=== PATIENT | female | born 1940 | race Caucasian/White ===

== ENCOUNTER 2017-04-17 14:03 | Inpatient (IN) | payer MEDICARE ==
[~2017-04-17] VITALS: Ht 152.4 cm; Wt 155.0 kg
[~2017-04-17 14:03] MED LIST: ACETAMINOPHEN500 M1 PO; ASPIRIN81 MG PO; BACLOFEN10 MG PO; CLARITIN 10 MG10 MG PO; COZAAR50 MG PO; CYCLOBENZAPRINE10 MG PO; DEPAKENE 2250 MG/5 M PO; GLUCOPHAGE500 MG PO; HALDOL DECAN50 MG/ML IM; HALDOL ORA30 MG/15 M PO; HUMALOG 30100 UNITS/ SC; HYZAAR 100-25 T1 TAB PO; IMODIUM2 MG PO; LITHIUM CARBON150 MG PO; LITHIUM CI8 MEQ/5 ML PO; NATURAL SENNA8.6 MG PO; OS-CAL500 MG PO; OXYBUTYNIN CHLOR5 MG PO; PLETAL100 MG PO; SEROQUEL25 MG PO; SEROQUEL50 MG PO; ULTRAM50 MG PO; VESICARE5 MG PO; VITAMIN D31000 UNI2 PO; ZYPREXA10 MG PO
[2017-04-17 15:02] LABS: BASOPHILS 0.2 % (0-2); EOSINOPHILS 3.8 % (0-7); HEMATOCRIT 37.8 % (36.0-48.0); HEMOGLOBIN 11.8 g/dL (12-16); IMMATURE GRANULOCYTES 0.1 % (0-5); LYMPHOCYTES 35.6 % (15-50); MCH 28.6 pg (26.0-34.0); MCHC 31.2 g/dL (31.0-37.0); MCV 91.5 fL (80.0-100.0); MEAN PLATELET VOLUME 10.7 fL (7.4-10.4); MONOCYTES 5.6 % (2-11); NEUTROPHILS 54.7 % (40-80); PLATELET COUNT 182 10x3/uL (130-400); RBC 4.13 10x6/uL (4.00-5.40); RDW 16.5 % (11.5-14.5); WBC 9.4 10x3/uL (4.8-10.8)
[2017-04-17 15:57] LABS: ALBUMIN 3.4 g/dL (3.4-5.0); ANION GAP 18.1 mmol/L (8-16); BILIRUBIN - TOTAL 0.39 mg/dL (0.2-1.3); CALCIUM 9.3 mg/dL (8.5-10.1); CARBON DIOXIDE 23.3 mmol/L (21.0-32.0); CREATININE - SERUM 0.9 mg/dL (0.6-1.3); POTASSIUM - SERUM 4.4 mmol/L (3.5-5.1); PROTEIN - SERUM 7.4 g/dL (6.4-8.2)
[2017-04-17 16:45] LABS: APPEARANCE CLEAR (CLEAR); BILIRUBIN NEGATIVE (NEGATIVE); COLOR YELLOW (YELLOW); EPITHELIAL CELLS 0-5 /hpf (0-5); GLUCOSE NEGATIVE (NEGATIVE); KETONE NEGATIVE (NEGATIVE); NITRITE NEGATIVE (NEGATIVE); PROTEIN TRACE mg/dL (NEGATIVE); RED CELLS - URINE 0-5 /hpf (0-5); UROBILINOGEN NORMAL (NORMAL); WHITE CELLS - URINE 0-5 /hpf (0-5)
[2017-04-17 16:46] LABS: BACTERIA MODERATE /hpf (NONE SEEN)
[2017-04-17 17:02] LABS: UDS - AMPHET NEGATIVE QUAL (NEGATIVE); UDS - BARB NEGATIVE QUAL (NEGATIVE); UDS - BENZO NEGATIVE QUAL (NEGATIVE); UDS - COCAINE NEGATIVE QUAL (NEGATIVE); UDS - OPIATE NEGATIVE QUAL (NEGATIVE); UDS - PCP NEGATIVE QUAL (NEGATIVE); UDS - THC NEGATIVE QUAL (NEGATIVE)
--- NOTE | 2017-04-17 18:45 | NUR ---
RECEIVED FROM EMERGENCY DEPARTMENT MARGARET RODRIGUEZ WITH HOSPITAL STAFF. PATIENT WAS SEDATED AND HAD TO BE MANUALLY TRANSFER WITH 3 STAFF MEMBERS TO HER BED. SHE DID AWAKEN AND HAD GARBLED SPEECH AND WASS RESISTANT TO BEING MOVED. SHE STARTED YELLING AT STAFF, BUT BRIEFLY LATER SHE CALMED DOWN. O2 AT 2L/NC WAS APPLIED FOR RESPIRATIONS DUE TO PRN INJECTION GIVEN IN ER DEPT. MONITOR FOR SAFETY AND CHANGES. WILL CONTINUE WITH PLAN OF CARE.
[2017-04-17] MEDS ORDERED: ACETAMINOPHEN325 MG PO (19:50)
[2017-04-17] MEDS ORDERED: ACIDOPHILUS LAC1 CAP PO (19:52)
[2017-04-17] MEDS ORDERED: ARTIFICIAL TEAR15 ML EACH EYE (19:53)
[2017-04-17] MEDS ORDERED: ASPIRIN325 MG PO (19:54)
[2017-04-17] MEDS ORDERED: BAYER CHEWABLE81 MG PO (19:55)
[2017-04-17] MEDS ORDERED: AUGMENTIN 875-11 TAB PO (19:56)
[2017-04-17] MEDS ORDERED: DULCOLAX STOOL100 MG PO (19:58)
[2017-04-17] MEDS ORDERED: FIBER POWDER (20:00)
[2017-04-17] MEDS ORDERED: FISH OIL 1,0001 CA1 PO (20:00)
[2017-04-17] MEDS ORDERED: PROZAC10 MG PO (20:01)
[2017-04-17] MEDS ORDERED: NEURONTIN 300300 MG PO (20:01)
[2017-04-17] MEDS ORDERED: HYDRALAZINE HCL10 MG PO (20:03)
[2017-04-17] MEDS ORDERED: MELATONIN 3 MG1 TAB PO (20:08)
[2017-04-17] MEDS ORDERED: MIRALAX17 GM PO (20:09)
[2017-04-17] MEDS ORDERED: METOPROLOL TART50 MG PO (20:09)
[2017-04-17] MEDS ORDERED: NYAMYC60 GM TP (20:11)
[2017-04-17] MEDS ORDERED: OMEPRAZOLE20 M1 PO (20:12)
[2017-04-17] MEDS ORDERED: DITROPAN X10 MG/BOTT PO (20:13)
[2017-04-17 20:14] VITALS: BP 125/85
[2017-04-17] MEDS ORDERED: GAS-X80 MG PO ×2 (20:19)
[2017-04-17] MEDS ORDERED: ULTRAM50 MG PO (20:21)
[2017-04-17] MEDS ORDERED: ASCORBIC ACID500 MG PO (20:21)
[2017-04-17] MEDS ORDERED: VITAMIN D31000 UNIT PO (20:22)
[2017-04-17] MEDS ORDERED: ZYPREXA10 MG PO (20:23)
[2017-04-17 21:40] LABS: HEMOGLOBIN A1C 6.9 % (4.8-6.0)
[2017-04-17 21:54] LABS: CHOL - HDL RATIO 3.9 ratio (2.3-4.1); LDL-HDL RATIO 2.4 ratio (1.5-3.5); THYROID STIMULATING HORMONE 1.3 uIU/mL (0.36-3.74)
--- NOTE | 2017-04-17 23:33 | NUR ---
RECEIVED IN BEDROOM. LAYING IN BED WITH EYES CLOSED. VERY LETHARGIC. HEAD OF BED 30 DEGREES. ADMIT CONSENT RECIEVED VIA TELEPHONE FROM HER SISTER RANJEET. DNR CODE STATUS RECEIVED FROM SISTER. RESTING IN BED EYES CLOSED AT THIS TIME.
--- NOTE | 2017-04-18 07:47 | NUR ---
SCREAMING AND YELLING OUT LOUDLY WHEN GETTING PATIENT OUT OF BED. ATIVAN 0.5MG AND HALDOL 2 MG IM GIVEN IN RIGHT GLUTEAL GIUSEPPE.
[2017-04-18 09:38] VITALS: BP 111/59
[2017-04-18 13:35] VITALS: BMI 40.7
[2017-04-18 16:42] VITALS: BP 160/78; Ht 152.4 cm; Wt 155.0 kg
--- NOTE | 2017-04-18 19:32 | NUR ---
RECEIVED IN HALLWAY. RESTING IN RECLINER WITH EYES CLOSED. ASSIST TO TRANSFERE TO BED. CLEANED PATIENTS FACE AND EYES PER ORDER TO PREVENT EYE INFECTION. YELLS OUT DURING CARE. RESIST CARE. RESTING IN BED EYES CLOSED AT THIS TIME. CONTINUE PLAN OF CARE
[2017-04-18 20:17] VITALS: BP 115/78
--- NOTE | 2017-04-19 03:28 | NUR ---
PROVIDING CARE. PATIENT COMBATIVE. CURSING. THREATING. ATTEMPT TO ROLL OUT OF BED. PRN ATIVAN 0.5 MG IM GIVEN FOR ANXIETY AND PRN HALDOL 2 MG IM GIVEN FOR PSYCHOTIC UNSAFE BEHAVIORS.
--- NOTE | 2017-04-19 09:00 | NUR ---
Resting quietly in bed, resp even and unlabored, arouses to verbal/tactile stimuli but quite drowsy, unable to takes meds at this time. Cont POC including meds and group therapy at directed. No aggression noted at this time.
[2017-04-19 09:05] VITALS: BP 140/67
--- NOTE | 2017-04-19 12:52 | PSY ---
PATIENT NAME:TERRENCE MESA MEDICAL RECORD: [id number] : 40 LOCATION:[facility]NE[facility]sie[facility] ADMISSION DATE: 04/17/17 ACCOUNT: [id number] PSYCHIATRIC EVALUATION DATE OF EVALUATION: 04/18/17 IDENTIFYING DATA: The patient is 76 years old and she is admitted to the hospital on a voluntary basis. CHIEF COMPLAINT: Melvi. HISTORY OF PRESENT ILLNESS: The patient is a known chronically mentally ill person with a longstanding diagnosis of mental illness. She lives in a local usp. Apparently if I have the information correct, she became lithium toxic and was taken off lithium by someone at the Emergency Room at [facility]. Since then, she has become manic, screaming, yelling, threatening, and agitated. She is not cooperative with me at all. I was able to get her to answer a few questions and then almost without any warning at all she threw a cup of apple juice on me. That ended the interview. PAST MEDICAL HISTORY: Significant for diabetes. PAST PSYCHIATRIC HISTORY: Significant for chronic mental illness with many hospitalizations throughout her life including several here, but none for almost 2 years. Again taking her off lithium is a mistake. FAMILY HISTORY: Unknown. ALLERGIES: No known drug allergies. CURRENT MEDICATIONS: Include Cozaar, Flexeril, Haldol, Zyprexa, insulin, Glucophage, aspirin, Prozac, melatonin, MiraLax. SOCIAL HISTORY: The patient is living in a usp. She has been chronically mentally ill all much of her adult life. MENTAL STATUS EXAMINATION: The patient is awake, alert and oriented to person and place. She is manic, hyperverbal and formal mental status testing was not completed before she threw apple juice on me. ASSETS: Stable living environment. LIABILITIES: Limited insight. DIAGNOSTIC IMPRESSION: AXIS I: Schizoaffective disorder, bipolar type. AXIS II: None. AXIS III: Hypertension and diabetes. AXIS IV: Moderate stressors. AXIS V: Global assessment of functioning is 25. PLAN: At this time, the patient is manic and in need of a mood stabilizer. When she was here before she did not want to take lithium and was tried on both Tegretol and Depakote and they failed. This patient may well have gotten lithium toxic. She just needs to be watched closely. She has a BUN of 18 and a creatinine of 0.9 right now. There is no renal reason at this point why she cannot take lithium and there is absolutely no reason why she cannot or should not be monitored closely for lithium toxicity and the appropriate thing to do is to monitor her and not just discontinue a medication that is going to make her become ill. I am going to restart her on lithium. TRANSINT:[id number] Voice Confirmation ID: [id number] DOCUMENT ID: [id number] FREDERICK OWEN MD at 1252 CC: [id number] DICTATION DATE: 04/18/17 1324 CARE SPECIALIST: 04/18/17 1341 ADM IN [place] [id number] [place] [id number]
[2017-04-19 19:36] VITALS: BP 130/70
--- NOTE | 2017-04-19 22:51 | NUR ---
RECEIVED IN PATIENT ROOM. RESTING QUIETYLY IN BED WITH EYES OPEN. ASKED FOR HER GREEN BLANKET. STATED "I WANT THIS BLANKET BECAUSE IT IS MY LOVERS BLANKET. IT STILL HAS HIS BLOOD STAINS ON IT." NO SIGNS OF AGGRESSION. REDIRECT AND REORIENT NEEDED. RESTING IN BED WITH EYES CLOSED AT THIS TIME. CONTINUE PLAN OF CARE.
--- NOTE | 2017-04-20 09:56 | PN ---
PATIENT:ETRRENCE MESA MEDICAL RECORD: [id number] LOCATION:DARNELL Naqvi ADMISSION DATE: 04/17/17 PROGRESS NOTE DATE OF SERVICE: 04/19/2017 SUBJECTIVE: The patient's case was discussed with staff. She has no new complaint. OBJECTIVE: The patient is manic, labile and delusional, yelling, cursing, and threatening in a way that it is clearly delusional and not in touch with reality. ASSESSMENT: No change in diagnoses. PLAN: Brief supportive and educational interventions were made. I have encouraged the patient to take her medications, which will help her. She does not accept this conclusion. TRANSINT:[id number] Voice Confirmation ID: [id number] DOCUMENT ID: [id number] FREDERICK OWEN MD at 0956 CC: [id number] DICTATION DATE: 04/19/17 1302 MANGLE OPERATOR GARMENTS: 04/19/17 1310 ADM IN [place] [id number] [place] [id number]
--- NOTE | 2017-04-20 12:24 | NUR ---
B) PATIENT IS AWAKE AND SHE IS EATING LUNCH, SHE WANTS TO LIE DOWN TO EAT. SHE DID TAKE HER AM MEDS EXCEPT MIRALAX AND ASA. SHE IS QUESTIONING EVERY MEDS AND SHE IS SINGING ALOUD. SHE WET HER BED ON THE PINK PAD ONLY AND THIS NURSE ASKED HER IF SHE WET, SHE SAID "NO, THE CAT CAME IN HERE AND WET ON THE PAD" PATIENT IS DELUSIONAL, GRANDIOSE, AND TALKS AND SINGS TO HERSELF. I) PROVIDE PRESCRIBED MEDS AND REDIRECT NEEDED. R) PATIENT NEEDS MUCH REDIRECTION TO REALITY AND SHE HAS TO BE GIVEN DIRECTION MATTER OF FACT, SHE TRIES TO MANIPULATE AND CHANGE THE SUBJECT AND GET OFF TRACK. P) CONTINUE POC.
--- NOTE | 2017-04-20 13:35 | NUR ---
PATIENT CONTINUES TO RING HER SABA MULTIPLE TIMES, FIRST ASKS TO MAKE A PHONE CALL, THEN ASKS TO PUT PANTS ON, ASKS FOR WATER, THEN ASKS FOR THE LIGHTS TO BE LOWERED, THEN ASKS FOR THE DOOR TO BE SHUT, THEN ASKS FOR A W/C TO GET TO THE PHONE. PATIENT CONTINUES TO TRY TO MANIPULATE. STAFF EXPLAIN THAT SHE CAN MAKE A PHONE CALL AT 5:30 THIS PM. HER CLOCK IN HER ROOM IS NOT WORKING, BUT DID EXPLAIN THAT WE WILL LET HER KNOW WHEN PHONE CALL TIMES ARE.
--- NOTE | 2017-04-20 15:15 | NUR ---
PATIENT WET HER BED AND THREW THE PINK PAD ON THE FLOOR, SHE WET THE ENTIRE BED AND NEEDED AND RECEIVED A FULL BED CHANGE.
--- NOTE | 2017-04-20 16:19 | NUR ---
PATIENT CONTINUES TO USE HER CALL SABA AND MAKE MULTIPLE REQUESTS. PATIENT IS NOW SCREAMING FOR STAFF TO PUT UP ALL FOUR SIDE RAILS, SAYING "I'M GOING TO FALL OUT" TRIED TO EXPLAIN TO HER THAT WE ARE NOT ALLOWED TO PUT UP ALL FOUR SIDE RAILS. PATIENT HAS MANEUVERED HER BED WHERE THE FEET ARE ELEVATED HIGH. DOES NOT LOOK COMFORTABLE, BUT SHE DOES NOT WANT IT MOVED TO A DIFFERENT ANGLE. PATIENT YELLING OUT AND NONCOOPERATIVE, STAFF FROM OTHER UNIT CAME OVER TO SEE WHAT IS GOING ON. PATIENT DID RECEIVE HALDOL 2 MG IM IN LEFT HIP. WILL MONITOR.
[2017-04-20 19:22] VITALS: BP 132/84
--- NOTE | 2017-04-21 01:56 | NUR ---
B) Patrient is alert and oriented to person and place, defiant , needy, and demanding, attention seeking, Restless and agitated. I) Administered scheduled medications, PRN Ativan 0.5 mg IM and Haldol 2 mg IM given at 20:29 adn again at 23:30 for agitation R) Medication compliant this shift, loud and disruptive, P) Continue plan of care.
--- NOTE | 2017-04-21 07:27 | NUR ---
B) PATIENT AWAKENED AND STAFF DID GET HER UP OUT OF BED AND SHE IS YELLING AND CURSING, SAYING "I CAN NOT GET UP OUT OF BED, I CAN NOT BE SEEN LIKE THIS, I AM NOT READY TO SEE THE PUBLIC" PATIENT BEGINS TO SCREAM, OTHER PATIENTS HAVE ALREADY TOLD HER TO "SHUT UP" AND SHE BEGAN POITING HER BRUSH AT THEM AND RANTING AND RAVING "I NEED TO GO BACK TO MY ROOM" I) PROVIDE PRESCRIBED MEDS. R) PATIENT IS YELLING AND ACTING OUT. P) CONTINUE POC.
--- NOTE | 2017-04-21 07:36 | NUR ---
PATIENT YELLING AND SHE RECIEVED ATIVAN 0.5 MG WITH HALDOL 2 MG IM IN HER LEFT ARM. PATIENT CONTINUES TO YELL AND SCREAM. WILL MONITOR.
--- NOTE | 2017-04-21 08:10 | NUR ---
PATIENT IS NOT YELLING MUCH AND HER VOICE IS GETTING SOFTER AND WORDS ARE SLURRING.
[2017-04-21 09:06] VITALS: BP 125/50
--- NOTE | 2017-04-21 09:17 | PN ---
PATIENT:TERRENCE MESA MEDICAL RECORD: [id number] LOCATION:DARNELL Naqvi ADMISSION DATE: 04/17/17 PROGRESS NOTE DATE OF SERVICE: 04/20/2017 SUBJECTIVE: The patient's case was discussed with staff. She has no new complaint. OBJECTIVE: The patient is delusional with significant mood lability and agitation. She denies that she would seek to harm herself. She is angry with me about my recommendation that she take medication. She says she is not going to take medicine, although I have learned later that she actually took the medicine this morning from the nurse. At this point, she is still profoundly sick and is in need of significant pharmacologic intervention. TRANSINT:[id number] Voice Confirmation ID: [id number] DOCUMENT ID: [id number] FREDERICK OWEN MD at 0917 CC: [id number] DICTATION DATE: 04/20/17 1002 INFORMATION SUPPORT PROJECT MANAGER: 04/20/17 1050 ADM IN [facility] [address] [place] [address]
--- NOTE | 2017-04-21 17:41 | NUR ---
PATIENT IS RANTING AND RAVING ABOUT MAKING PHONE CALLS SHE IS TALKING NONSTOP AND SINGING THE OTHER PATIENT'S ARE GETTING UPSET WITH HER AND AND THEY HAVE ASKED "CAN'T YOU DO SOMETHING WITH HER, SHE NEVER SHUTS UP" PATIENT BECAME LOUDER AND LOUDER AND MAKING A SCENE. PATIENT GIVEN ATIVAN 0.5 MG IM AND HALDOL 2 MG IM IN RIGHT DELTOID. PATIENT SCREAMED ABOUT THAT, MAKING REQUESTS TO "GIVE MY MEDICINE, I NEED MY MEDICINE".
[2017-04-21 19:57] VITALS: BP 101/48
--- NOTE | 2017-04-21 23:27 | NUR ---
B) Patient is alert and restless, disruptive of other patients by yelling and singing loudly, patient does not redirect or even stop talking to hear instructions, very needy and tries to manipulate staff, I) Administered scheduled medications, PRN Ativan 0.5 mg IM and Haldol 2 mg IM given at 23:20 for anxiety, R) Medication compliant, constant badgering the staff with requests, P) Continue plan of care.
[2017-04-22 08:00] VITALS: BP 144/52
--- NOTE | 2017-04-22 08:46 | NUR ---
B) PATIENT DID NOT WANT TO GET UP AND SHE BEGAN TO PUNCH AT STAFF THEY WERE ASSISTING HER TO GET UP. PATIENT YELLING AND CALLING STAFF "IDIOTS" PATIENT NOT COOPERATIVE, SHE IS ABLE TO SIT UP AND STAND, BUT SHE IS REFUSING. PATIENT IS SAYING "I NEED TO STAY IN BED" I) PROVIDE PRESCRIBED MEDS, PATIENT DID RECIEVE ATIVAN 0.5 MG IM WITH HALDOL 2 MG IM IN LEFT DELTOID. R) PATIENT IS TAKING MEDS CRUSHED IN HER ORANGE JUICE. P) CONTINUE POC.
--- NOTE | 2017-04-22 10:46 | NUR ---
PATIENT'S SISTER DID CALL TO CHECK ON HER AND LET STAFF KNOW THAT SHE NEEDS HER GLASSES AND [facility]. SHE DID ASK HOW SHE IS DOING. DID LET HER KNOW SHE IS STILL SICK, BUT THAT WE ARE TRYING TO GET HER MEDS IN HER TO GET HER MORE STABLE, SISTER DID SAY SHE KNEW TERRENCE IS BETTER ON LITHIUM.
--- NOTE | 2017-04-22 11:29 | PN ---
PATIENT:TERRENCE MESA MEDICAL RECORD: [id number] LOCATION:DARNELL Naqvi ADMISSION DATE: 04/17/17 PROGRESS NOTE DATE OF SERVICE: 04/21/2017 SUBJECTIVE: The patient's case was discussed with staff. She has no new complaint. OBJECTIVE: The patient is delusional and hyperverbal. She has been agitated, throwing things at the staff, cursing, and yelling. She has been compliant with some of her medicines and not others. The pattern seems to make no rational sense. Some of the pills she said she would never take she has and others that she has never said anything about having a problem taking she will not take. Obviously, this is illogical and consistent with her mental illness. At this point, I am wanting to get enough antipsychotic and mood stabilizing medicines into her to bring her down to a point where she can interact with me in a rational manner. [place], I think, is the roldan medication that will accomplish this; and in my previous dealings with her, other mood stabilizers simply have not had the same beneficial effect. She has a normal renal function, but if lithium is mentioned to her, she often will become angry and says she cannot take it because her kidneys are failing. Telling her that is not the case only makes her angry. TRANSINT:[id number] Voice Confirmation ID: [id number] DOCUMENT ID: [id number] FREDERICK OWEN MD at 1129 CC: [id number] DICTATION DATE: 04/21/17 0935 PRESS SET UP PERSON: 04/21/17 1138 ADM IN [place] [address] [place] [address]
[2017-04-22 21:13] VITALS: BP 110/54
--- NOTE | 2017-04-23 04:51 | NUR ---
B) patient is alert and oriented to self and being in a hospital, difficult to redirect, defiant, needy and attention seeking, I) Administered scheduled medications, PRN Ativan 0.5 mg IM and Haldol 2 mg IM given at 2100 for anxiety, redirected as needed, R) Medication compliant, demanding and badgering staff P) Continue plan of care.
[2017-04-23 07:00] VITALS: BP 158/44
--- NOTE | 2017-04-23 12:00 | NUR ---
ORIENTED BUT NONCOMPLIANT WITH STAFF AND MEDS.REFUSED LITHIUM THIS AM.YELLS OUT AT TIMES.WILL CONTINUE WITH PLAN OF CARE,MONITOR FOR CHANGES AND SAFETY.
--- NOTE | 2017-04-23 12:01 | PN ---
PATIENT:TERRENCE MESA MEDICAL RECORD: [id number] LOCATION:DARNELL Naqvi ADMISSION DATE: 04/17/17 PROGRESS NOTE DATE OF SERVICE: 04/22/2017 SUBJECTIVE: The patient's case was discussed with staff. She has no new complaint. OBJECTIVE: The patient is in good behavioral control with poor insight about her condition. She tolerates her medicines well. ASSESSMENT: No change in diagnoses. PLAN: Brief supportive and educational interventions were made. Long-term prognosis is guarded. The patient will have a lithium level checked in a day or two. She clearly is still delusional, but showing some improvement. TRANSINT:[id number] Voice Confirmation ID: [id number] DOCUMENT ID: [id number] FREDERICK OWEN MD at 1201 CC: [id number] DICTATION DATE: 04/22/17 1138 SAW HANDLE ASSEMBLER: 04/22/17 1254 ADM IN [place] [id number] [place] [address]
--- NOTE | 2017-04-23 20:16 | NUR ---
RECEIVED IN HALLWAY. SITTING IN A RECLINING CHAIR. YELLING OUT AT TIMES. VERBALLY ABUSIVE. RESISTANT TO CARE BY THIS NURSES STATING SHE WANTS A WOMAN TO HELP HER TO BED. REDIRECT AND REORIENT NEEDED. IN BED WITH EYES OPEN. MED NURSE IN HER ROOM. CONTINUE PLAN OF CARE
[2017-04-23 20:29] VITALS: BP 138/48
--- NOTE | 2017-04-23 22:00 | NUR ---
PATIENT YELLING OUT. VERBALLY ABUSIVE TO STAFF. CURSING. THROWING THINGS IN HER ROOM. PRN ATIVAN 0.5 MG IM GIVEN FOR ANXIETY AND PRN HALDOL 2 MG GIVEN FOR PSYCHOTIC BEHAVIORS.
[2017-04-24 07:00] VITALS: BP 154/59
--- NOTE | 2017-04-24 09:57 | NUR ---
PT REFUSED MOST MEDICATIONS THIS AM. PT INSISTED ON ARGUING THAT SHE IS NOT DIABETIC AND DOES NOT NEED ANY OF THESE MEDICATIONS. PT TOOK LACTINEX, LOPRESSOR, AND ASPIRIN. WCAC.
--- NOTE | 2017-04-24 13:51 | PN ---
PATIENT:TERRENCE MESA MEDICAL RECORD: [id number] LOCATION:DARNELL Naqvi ADMISSION DATE: 04/17/17 PROGRESS NOTE DATE OF SERVICE: 04/23/2017 SUBJECTIVE: The patient's case was discussed with staff. She has no new complaint. OBJECTIVE: The patient denies intent to harm herself or others. She tolerates her medications well. Eye contact is poor. ASSESSMENT: No change in diagnoses. PLAN: Current medicines have been reviewed. Long-term prognosis is guarded. TRANSINT:[id number] Voice Confirmation ID: [id number] DOCUMENT ID: [id number] FREDERICK OWEN MD at 1351 CC: [id number] DICTATION DATE: 04/23/17 1208 GENERAL EDUCATION PROFESSOR: 04/23/17 1228 ADM IN [place] [id number] [place] [address]
--- NOTE | 2017-04-24 19:44 | NUR ---
RECEIVED IN HALLWAY. MOVING ABOUT IN WHEELCHAIR. COOPERATIVE WITH CARE AND ASSESSMENT. NOT YELLING OUT. TALKING WITH PEERS. REDIRECT AND REORIENT NEEDED. IN HALLWAY WITH MED NURSE AT THIS TIME. CONTINUE PLAN OF CARE
[2017-04-24 20:00] VITALS: BP 176/69
--- NOTE | 2017-04-25 02:45 | NUR ---
PATIENT OUT IN HALLWAY. YELLING OUT. VERBALLY ABUSIVE WITH STAFF. INCREASING ANXIETY. PRN AVTIVAN 0.5 MG IM GIVEN FOR ANXIETY AND PRN HALDOL 2 MG IM GIVEN FOR PSYCHOTIC BEHAVIORS.
[2017-04-25 08:58] VITALS: BP 137/53
--- NOTE | 2017-04-25 11:52 | PN ---
PATIENT:TERRENCE MESA MEDICAL RECORD: [id number] LOCATION:DARNELL Naqvi ADMISSION DATE: 04/17/17 PROGRESS NOTE DATE OF SERVICE: 04/24/2017 SUBJECTIVE: The patient's case was discussed with staff. She has no new complaint. OBJECTIVE: The patient denies intent to harm herself or others. She is very disorganized and delusional. She makes a number of bizarre statements. ASSESSMENT: No change in diagnoses. PLAN: The patient is still not compliant with medications and the compliance is intermittent and has no real consistency to it. At sometime she will say, she is allergic to a certain medicines, other times she will take it. Most of the time, she is not taking and especially if it is lithium. She has had a long-acting Haldol Decanoate injection. I think her prognosis is guarded. Supportive and educational interventions were made. TRANSINT:[id number] Voice Confirmation ID: [id number] DOCUMENT ID: [id number] FREDERICK OWEN MD at 1152 CC: [id number] DICTATION DATE: 04/24/17 1412 LIGHTING ENGINEER: 04/24/17 1451 ADM IN [facility] [address] [place] [id number]
--- NOTE | 2017-04-25 12:15 | NUR ---
TYLENOL GIVEN TO PT PER DR ORDER FOR 10/10 PAIN TO BACK WILL REACESS
--- NOTE | 2017-04-25 14:29 | NUR ---
Nutrition Follow Up: Pt is eating 27% meal avg on a diabetic diet. Noted she is refusing some meals. She is having some nausea per chart. No BM since admit. Rec continue current diet. Rec consider an appetite stimulant. RD following.
[2017-04-25 19:35] VITALS: BP 123/63
--- NOTE | 2017-04-26 01:56 | NUR ---
RECEIVED IN PATIENT ROOM. SITTING IN WHEELCHAIR. COOPERATIVE WITH CARE AND ASSESSMENT. REFUSED LITHIUM AND ZYPREXA. STATES THAT SHE DOESNT NEED LITHIUM AND ZYPREXA BECAUSE SHE ISN'T SCHIZOPHRENIC ANYMORE. SAYS SHE GOT TESTED AGAIN AND THE TEST SHOWED THAT SHE DOESN'T HAVE SCHIZOPHRENIA ANYMORE. PATIENT STATED SHE WILL NEVER TAKE THOSE MEDICATIONS EVER AGAIN. ENCOURAGE TO EXPRESS NEEDS. REDIRECT AND REORIENT NEEDED. RESTING IN BED WITH EYES CLOSED AT THIS TIME. CONTINUE PLAN OF CARE.
--- NOTE | 2017-04-26 08:18 | NUR ---
B) PATIENT AWAKENS IN A GOOD MOOD AND SHE DID GET UP OUT OF BED WITH ASSIST, SHE IS SINGING AND SHE IS PLEASANT, SHE DENIES NEED FOR MEDS STATING "I AM NO LONGER SCHIZOPHRENIC" PATIENT SELF PROPELS IN W/C. I) PROVIDE PRESCRIBED MEDS. R) PATIENT IS COMPLIANT WITH MEDS WHEN MEDS ARE PUT IN HER JUICE. P) CONTINUE POC.
[2017-04-26 09:50] VITALS: BP 156/52
--- NOTE | 2017-04-26 13:18 | NUR ---
PATIENT C/O BACK PAIN AND REQUESTS TYLENOL. PATIENT DID RECIEVE TYLENOL, SEE MAR.
--- NOTE | 2017-04-26 14:00 | NUR ---
PATIENT NO LONGER COMPLAINING OF BACK PAIN, SHE CONTINUES TO RAMBLE ABOUT DIFFERENT SUBJECTS AND SHE IS MAKING GRANDIOSE DELUSIONAL STATEMENTS. CALLING THIS NURSE THE HEAD CHIEF OF HER [facility].
--- NOTE | 2017-04-26 14:06 | PN ---
PATIENT:TERRENCE MESA MEDICAL RECORD: [id number] LOCATION:DARNELL Naqvi ADMISSION DATE: 04/17/17 PROGRESS NOTE DATE OF SERVICE: 04/25/2017 SUBJECTIVE: The patient's case was discussed with staff. She has no new complaint. OBJECTIVE: The patient is in good behavioral control with poor insight about her condition. She tolerates her medicines well. ASSESSMENT: No change in diagnoses. PLAN: Brief supportive and educational interventions were made. The patient is only intermittently taking her medications and she will have a lithium level checked tomorrow. I do not anticipate it is going to be therapeutic. I am just simply interested in seeing how far off the desired level we are. Talking with her about lithium is yielding inconsistent results anywhere from her agreeing to take it and then later not doing so to her adamantly refusing to take it and then occasionally doing so. It is very inconsistent and does not really make sense, but it is what one would expect from someone who is not in touch with reality. TRANSINT:[id number] Voice Confirmation ID: [id number] DOCUMENT ID: [id number] FREDERICK OWEN MD at 1406 CC: [id number] DICTATION DATE: 04/25/17 1438 DECORATION CHECKER: 04/25/17 1530 ADM IN [place] [id number] [place] [address]
[2017-04-26 19:44] VITALS: BP 159/55
--- NOTE | 2017-04-27 01:55 | NUR ---
B) Patient is alert and oriented to self and hospital, rambling and attention seeking, disruptive of other patients, demanding on staff, always wanting or needing somthing, I) administered scheduled medication, PRN tylenol 650 mg PO given for head ache at 19:25, PRN Ativan 0.5 mg IM and Haldol 2 mg IM given at 19:08 for anxiety, monitored for safety and behaviors r) Medication compliant, intrusive and rude, unpleasant and will not redirect, P) Continue plan of care.
--- NOTE | 2017-04-27 08:13 | NUR ---
B) PATIENT IS AWAKE AND SHE IS RAMBLING, SHE IS MAKING DELUSIONAL STATEMENTS AND SHE IS TALKING AND TALKING, SHE DOES NOT REDIRECT AND SHE IS NOT LISTENING, SHE HAS MULTIPLE C/O FOOD, BODY ACHES. SHE IS SELF PROPELLING IN THE W/C AND NEARLY RUNNING OVER OTHER PATIENT'S TOES. I) PROVIDE PRESCRIBED MEDS. ATIVAN 0.5 MG AND HALDOL 2 MG IM GIVEN IN RIGHT DELTOID. R) PATIENT REFUSES HER MEDS AND GRIPES AND C/O THAT "THE LITHIUM EATS THE MEAT OF MY CLITORIS." OR SHE SAYS "LITHIUM MAKES MY BONES HURT." PATIENT PICKS AND CHOOSES HER MEDS ON DIFFERENT DAYS. TODAY ALL OF HER MEDS ARE CRUSHED AND PUT IN HER ORANGE JUICE. R) PATIENT MAKES MULTIPLE REQUESTS FOR PILLS THAT SHE IS NO LONGER PRESCRIBED. P) CONTINUE POC.
--- NOTE | 2017-04-27 09:00 | NUR ---
PATIENT IS CALMER AND SHE IS NOT RAMBLING AND MAKING GRANDIOSE, DELUSIONAL STATEMENTS. SHE IS MORE ABLE TO FOCUS ON READING AND HAVE A REASONABLE CONVERSATION.
--- NOTE | 2017-04-27 09:22 | NUR ---
PATIENT C/O BACK PAIN. TYLENOL 650 MG PO GIVEN NOW RATES PAIN 7/10.
[2017-04-27 09:52] VITALS: BP 146/76
--- NOTE | 2017-04-27 11:00 | NUR ---
PATIENT RATES HER PAIN 5/10 NOW.
--- NOTE | 2017-04-27 11:50 | NUR ---
PATIENT REQUESTS ASA FOR HER HEART, SHE SAYS "I HAVE A BAD HEART, I NEED MY MEDICINE" ASA 325 MG PO GIVEN NOW.
--- NOTE | 2017-04-27 12:30 | NUR ---
PATIENT HAS NOT MADE ANY COMMENTS ABOUT HER HEART, BUT NOW SHE IS REQUESTING TYLENOL FOR A HEADACHE, EXPLAINED TO PATIENT THAT HER TYLENOL IS EVERY 6 HOURS AND HER NEXT ONE IS DUE AFTER 3 PM TODAY.
--- NOTE | 2017-04-27 14:27 | PN ---
PATIENT:TERRNECE MESA MEDICAL RECORD: [id number] LOCATION:DARNE[facility] Geiger112 ADMISSION DATE: 04/17/17 PROGRESS NOTE DATE OF SERVICE: 04/26/2017 SUBJECTIVE: The patient's case was discussed with staff. She has no new complaint. OBJECTIVE: The patient is refusing her medicines and refused her lab draw. When attempts are made to discuss with her the importance of taking her medicines, she becomes angry, insists that I am not a real psychiatrist and that she has no mental illness and is not going to take any psychoactive medicines. Interestingly, she is not taking any other kind of medicine as well. ASSESSMENT: No change in diagnoses. PLAN: At this time, the patient is showing no improvement and is not cooperating with treatment. It would probably be reasonable to send her to the [facility] for long-term care, but they do not take patients over the age of 65 and even those who are underage of 65, it is almost impossible to get them admitted to the [facility]. It would seem that she is going to be here until she improves enough to leave. My plan at this point is that it is no longer effective to just discuss with her the importance of medication compliance. She is willing to take injections and I think giving her long-acting Haldol injection is appropriate. I am going to order another dose for her tomorrow if she continues to be noncompliant. TRANSINT:[id number] Voice Confirmation ID: [id number] DOCUMENT ID: [id number] FREDERICK OWEN MD at 1427 CC: [id number] DICTATION DATE: 04/26/17 1416 DAIRY FEED WORKER: 04/26/17 1453 ADM IN [facility] [address] [id number]
--- NOTE | 2017-04-27 15:40 | NUR ---
PATIENT IS NOW MAKING C/O STOMACH PAIN AND WONDERS IF SHE HAS ANYTHING FOR HER STOMACH.
--- NOTE | 2017-04-27 16:15 | NUR ---
PATIENT C/O PAIN IN HER SHOULDERS AND C/O NAUSEA, PROVIDED PATIENT WITH TYLENOL 650 MG PO AND ZOFRAN PO, SEE MAR.
--- NOTE | 2017-04-27 17:44 | NUR ---
PATIENT NO LONGER C/O PAIN, BUT SEES THIS NURSE AND ASKS FOR HER TYLENOL, HAD TO REDIRECT TO LET HER KNOW SHE ALREADY HAD HER TYLENOL. PATIENT SAID "OH YEA". PATIENT IS LISTENING TO A PATIENT COUGH AND SHE IS MAKING PARANOID DELUSIONAL STATEMENTS, SHE IS SAYING "WE'RE GOING TO GET THE TB, WE NEED TO BE EVACUATED IMMEDIATELY" SHE MAKES OTHER NONSENSICAL COMMENTS ABOUT HOW HER GRANDFATHER WAS A WORLD FAMOUS SURGEON THEN PROCEEDS TO TELL STAFF SHE IS IN GRAVE DANGER OF HER LIFE SINCE THAT MAN IS COUGHING. NO AMOUNT OF EDUCATING AND REDIRECTING IS CHANGING HER MIND.
[2017-04-27 19:37] VITALS: BP 152/58
--- NOTE | 2017-04-27 22:38 | NUR ---
B) patient is alert and oriented to person and place, demanding , intrusive, and rude, I) Administered scheduled medications crushed in orange juice R) medication compliant, resting quietly now P) Continue plan of care.
--- NOTE | 2017-04-28 08:37 | NUR ---
B) PATIENT IS AWAKE AND ALERT, SHE C/O PAIN AND SHE REQUESTED TYLENOL AND ASA THIS AM, DID PROVIDE THAT, SHE RATES PAIN 10/10, WELL ACTUALLY SHE SAID 12/10, BUT HAD TO EXPLAIN TO HER THAT OUR PAIN SCALE GOES TO 10 ONLY. SHE SAYS "WELL MINE IS DIFFERENT, IT GOES MUCH HIGHER" PATIENT CONTINUES TO MAKE BIZARRE STATEMENTS SAYING SHE WANTS TO GAIN WEIGHT SHE WANTS TO BE MUCH LARGER AND SHE SAYS SHE HOPES TO GAIN LARGE BREASTS. PATIENT NEEDED MINIMAL ASSIST THIS AM TO GET UP AND DRESS, SHE IS SELF PROPELLING IN HER W/C. I) PROVIDE PRESCRIBED MEDS. R) PATIENT IS COMPLIANT WITH SOME MEDS, SHE PICKS AND CHOOSES WHAT SHE WILL TAKE, SO SHE DID RECEIVE CRUSHED MEDS IN HER ORANGE JUICE THIS AM. P) CONTINUE POC.
[2017-04-28 09:44] VITALS: BP 119/50
--- NOTE | 2017-04-28 11:50 | NUR ---
PATIENT REFUSED HER ALEGRA AND SHE WENT INTO A LONG CONVERSATION WHY SHE REFUSES IT, EXPLAINED TO HER THAT SHE CAN REFUSE IT AND THERE IS NO NEED FOR THE REASON, WE ARE ALL ADULTS AND SHE WAS GIVEN AN EXPLANATION THIS AM TO NOT GIVE THE NURSE A HARD TIME, BUT THE PATIENT WANTS TO ARGUE AND BE CENTER OF ATRTENTION AT ALL TIMES.
[2017-04-28 19:30] VITALS: BP 146/91
--- NOTE | 2017-04-29 03:38 | NUR ---
B) patient is alert and oriented to person and place, intrusive, rude, hyperverbal, attention seeking I) Administered scheduled medications, PRN Tylenol 650 mg PO given for headache at 2130 and at 0330, R) Medication compliant, restless and refuses to sleep P) Continue plan of care.
--- NOTE | 2017-04-29 06:01 | PN ---
PATIENT:TERRENCE MESA MEDICAL RECORD: [id number] LOCATION:DARNELL Naqvi ADMISSION DATE: 04/17/17 PROGRESS NOTE DATE OF SERVICE: 04/28/2017 SUBJECTIVE: The patient states that she has a yeast infection that needs to be checked out. OBJECTIVE: The patient remains very intrusive, obstreperous and given to outbursts of agitation. The patient has been started on lithium. We will check a blood level on the . PHYSICAL EXAMINATION: On exam, mood is elevated. Affect is very histrionic and grossly inappropriate. Her speech is pressured and tangential. Content of thought is noted for hypersexual fames and grandiosity. Sensorium is unchanged. ASSESSMENT: No change in diagnosis. PLAN: 1. Continue current medication. 2. Continue supportive therapy. TRANSINT:[id number] Voice Confirmation ID: [id number] DOCUMENT ID: [id number] DULCE GARCIA III, MD at 0601 CC: [id number] DICTATION DATE: 04/28/17 1111 ASSISTANT WRESTLING COACH: 04/28/17 1210 ADM IN [id number] [place] [address]
[2017-04-29 07:00] VITALS: BP 167/47
--- NOTE | 2017-04-29 15:55 | NUR ---
IS ORIENTED TO PERSON,PLACE AND TIME BUT DOES NOT UNDERSTAND WHY SHE IS HERE.IS LOUD AND DEMANDING AT TIMES.IMPATIENT WHEN SHE WANTS SOMETHING.LITHIUM CRUSHED AND GIVEN IN ORANGE JUICE.AMBULATES FREQUENTLY IN UNIT.WILL CONTINUE WITH PLAN OF CARE,MONITOR FOR CHANGES AND SAFETY.
--- NOTE | 2017-04-29 16:03 | NUR ---
CORRECTION,SHE PROPELLS SELF IN WHEELCHAIR FREQUENTLY.
[2017-04-29 19:30] VITALS: BP 146/89
--- NOTE | 2017-04-30 01:45 | NUR ---
RECEIVED IN HALLWAY OUTSIDE OF NURSES STATION. SITTING IN WHEELCHAIR. YELLING. CURSING. ANXIOUS. VERBALLY ABUSIVE TO STAFF. ATTEMPTING TO STAFF MEMBERS WALKING BY. UNABLE TO REDIRECT. REFUSED LITHIUM. PATIENT STATED "I DONT WANT LITHIUM BECAUSE IT MAKES MY CLITORIS NUMB AND I CANT FEEL ANYTHING". REFUSED ZYPREXA. PATIENT STATED ZYPREXA WILL GIVE HER A HEART ATTACK. REFUSED NYSTOP POWDER BECAUSE PATIENT WANTED A MALE NURSE TO COME PUT IT ON HER. PATIENT STATED THAT SHE DOESNT WANT THE NYSTOP POWDER ON IF A MALE NURSE DOESNT COME PUT IT ON HER. REDIRECT AND REORIENT NEEDED. PRN ATIVAN 0.5 MG IM GIVEN FOR INCREASING ANXIETY. PRN HALDOL 2 MG IM GIVEN FOR PSYCHOTIC BEHAVIOR. CONTINUE PLAN OF CARE.
[2017-04-30 07:00] VITALS: BP 142/63
--- NOTE | 2017-04-30 08:07 | NUR ---
TYLENOL 650 MG PO GIVEN FOR LEVEL #8-9 BACK PAIN.
--- NOTE | 2017-04-30 10:00 | NUR ---
B) PATIENT IS AWAKE AND ALERT. ORIENTED X 2. SHE IS HYPERVERAL, RUDE AT TIMES, INTRUSIVE INTO USEREADY BUSINESS AND VERY DEMANDING WHEN SHE MAKES ANY REQUESTS. ASSESSMENT COMPLETED PER FLOW SHEET. I) ADMINISTERED PRESCRIBED MEDICATIONS, BUT PATIENT REFUSES HER ZYPREXA, LITHIUM AND LACTOBACILLIUS. R) COMPLIANT WITH OTHERS. P) CONTINUE PLAN OF CARE.
--- NOTE | 2017-04-30 11:12 | NUR ---
C/O HEART PAIN. VS STABLE, COLOR GOOD, ASA 325 MG PO GIVEN PER PATIENT REQUEST.
--- NOTE | 2017-04-30 14:03 | NUR ---
TYLENOL 650 MG PO GIVEN FOR BACK PAIN AT LEVEL # 10.
[2017-04-30 19:30] VITALS: BP 152/89
--- NOTE | 2017-04-30 21:04 | NUR ---
RECEIVED IN HALLWAY. MOVING ABOUT SINGING VERY LOUDLY. CALM AND COOPERATIVE WITH CARE AND ASSESSMENTS. REDIRECT AND REORIENT NEEDED. REFUSED PM ZYPREXA STATING IT WILL GIVE HER A HEART ATTACK. RESTING IN BED EYES OPEN AT THIS TIME. CONITNUE PLAN OF CARE
--- NOTE | 2017-04-30 21:47 | NUR ---
PATIENT IN ROOM SINGING VERY LOUDLY. COMES OUT OF ROOM. YELLING DEMANDING. BEING VERBALLY ABUSIVE TO STAFF. PRN ATIVAN 0.5 MG IM GIVEN FOR ANXIETY. PRN HALDOL 2 MG IM GIVEN FOR PSYCHOTIC BEHAVIOR.
[2017-05-01 07:00] VITALS: BP 169/69
--- NOTE | 2017-05-01 09:00 | NUR ---
ASSESSMENT COMPLETED PER FLOW SHEET. PATIENT IS ALERT AND ORIENTED TO PERSON AND PLACE. SHE IS CONSTANTLY TALKING NON-STOP, INTRUSIVE, RUDE AND ATTENTION SEEKING. COMPLIANT WITH TAKIN SOME OF MEDICATIONS, BUT REFUSES TO TAKE ZYREXA. MONITOR FOR SAFETY ANDONTINUE PLAN OF CARE.
--- NOTE | 2017-05-01 11:29 | NUR ---
TYLENOL 650 MG PO GIVEN FOR LEVEL # 10 BACK PAIN.
[2017-05-01 19:34] VITALS: BP 146/56
--- NOTE | 2017-05-01 21:13 | NUR ---
RECEIVED IN HALLWAY. MOVING ABOUT IN WHEELCHAIR OUTSIDE OF NURSES STATION. VERY INAPPROPRIATE. STATES SHE DOES NOT WANT ANY MEDICATIONS THAT WILL NUMB HER CLIT AND THAT SHE ONLY WANTS A MALE NURSE TO BUT HER POWDER ON HER VAGINA. REDIRECT AND REORIENT NEEDED. YELLING OUT IN HER BED AT TIMES. CONTINUE PLAN OF CARE
[2017-05-02 07:00] VITALS: BP 186/71
[2017-05-02 08:16] LABS: VITAMIN D 25 HYDROXY 45.4 ng/mL (30.0-100.0)
--- NOTE | 2017-05-02 09:00 | NUR ---
AWAKE AND ORIENTED X 2. COOPERATIVE AND IN PLEASANT MOOD. TALKS NONSTOP AND GETS VERY LOUD. STILL REFUSES MEDICATION , LITHIUM AND ZYPREXA. COMP,LIANT WITH ALL OTHER MEDS. REDIRECT AND REORIENT PRN. CONTINUE PLAN OF CARE.
--- NOTE | 2017-05-02 13:50 | PN ---
PATIENT:TERRENCE MESA MEDICAL RECORD: [id number] LOCATION:DARNELL Naqvi ADMISSION DATE: 04/17/17 PROGRESS NOTE DATE OF SERVICE: 05/01/2017 SUBJECTIVE: The patient's case was discussed with staff. She has no new complaint. OBJECTIVE: The patient continues to be labile, delusional and verbally aggressive. She is refusing her medications most of the time. She will occasionally take 1 or more for reasons that are fairly inconsistent. She did have some blood work done today. She had been refusing it and at this time, she has a lithium level of 0.25 mEq, which is about 1/4 of what I would like it to be. I am going to increase the dose of her lithium. It may need to be reduced at a later time if she begins taking the medicine consistently. ASSESSMENT: No change in diagnoses. PLAN: As described above, the patient will have her lithium increased to 300 mg twice daily. TRANSINT:[id number] Voice Confirmation ID: [id number] DOCUMENT ID: [id number] FREDERICK OWEN MD at 1350 CC: [id number] DICTATION DATE: 05/01/17 1435 STAFFING DIRECTOR: 05/01/17 1659 ADM IN [address] [place] [address]
--- NOTE | 2017-05-02 13:53 | NUR ---
Nutrition Follow Up: Pt is eating 75% meal avg on a diabetic diet. No BM since admit - x 16 days.?? Labs reviewed. Meds noted including Colace, Miralax. Rec continue current diet. Rec consider bowel regimen. RD following.
--- NOTE | 2017-05-02 19:48 | NUR ---
RECEIVED IN HALLWAY. SITTING IN WHEELCHAIR MOVING ABOUT HALLWAY. DEMANDING. ATTENTION SEEKING. SEXUALLY INAPPROPRIATE WITH MALE STAFF. COOPERATIVE WITH ASSESSMENT. REDIRECT AND REORIENT NEEDED. CONTINUE PLAN OF CARE
[2017-05-02 20:10] VITALS: BP 156/59
--- NOTE | 2017-05-03 09:30 | NUR ---
Alert, hyper-verbal, cursing, compliant with meds, attention-seeking, sexually inappropriate, no s/s adverse reaction to meds, Yelling,"Give me liberty, or give me Heritage!" Frequently requesting various medications that are not part of her med profile. Agitates other patients with her continuous talking.
[2017-05-03 09:36] VITALS: BP 172/96
--- NOTE | 2017-05-03 12:46 | PN ---
PATIENT:TERRENCE MESA MEDICAL RECORD: [id number] LOCATION:DARNELL Naqvi ADMISSION DATE: 04/17/17 PROGRESS NOTE DATE OF SERVICE: 05/02/2017 SUBJECTIVE: The patient's case was discussed with staff. She has no new complaint. OBJECTIVE: The patient is manic, hyperverbal and disorganized. She is not taking her medicines consistently. She only slept 45 minutes last night. ASSESSMENT: No change in diagnoses. PLAN: The patient is in need of medication management, but has consistently not accepted that for 2 weeks. I am going to look for long-term placement at the [facility] and informed her of this today. Plan, as above, the patient will be maintained on current medicines and long-term hospitalization will be sought. TRANSINT:[id number] Voice Confirmation ID: [id number] DOCUMENT ID: [id number] FREDERICK OWEN MD at 1246 CC: [id number] DICTATION DATE: 05/02/17 1405 SUPERVISOR LAST MODEL DEPARTMENT: 05/02/17 1413 ADM IN [address] [place] [address]
--- NOTE | 2017-05-03 16:18 | NUR ---
RAMBLING SPEECH FROM TOPIC TO TOPIC, VERY INTRUSIVE UPON OTHER'S CONVERSATIONS. QUITE DEMANDING.
--- NOTE | 2017-05-03 18:26 | NUR ---
Alert, intrusive, demanding, med compliant, denies pain/needs. Sitting in dayroom watching TV. Labile mood.
[2017-05-03 19:19] VITALS: BP 151/46
--- NOTE | 2017-05-03 22:36 | NUR ---
RECEIVED IN HALLWAY OUTSIDE OF NURSES STATION. MOVING AROUND IN WHEELCHAIR. VERY INTRUSIVE. DEMANDING. YELLING OUT AT TIMES. COOPERATIVE WITH CARE AND ASSESSMENT. REDIRECT AND REORIENT NEEDED. RESTING IN BED WITH EYES CLOSED AT THIS TIME. CONTINUE PLAN OF CARE.
--- NOTE | 2017-05-04 00:10 | NUR ---
PATIENT CONTINUOUSLY ATTEMPTING TO GET OUT OF BED. ROHIT ALARM SOUNDING. PATIENT IN HER ROOM SCREAMING AND DISTURBING OTHER PATIENT IN HER POD. COME OUT INTO THE HALLWAY WANTING A PRN SHOT. PATIENT STATED "IM MAD ENOUGH TO KILL." PATIENT ALSO CALLED T A "NIGGER TERRORIST". DEMANDING TO HAVE A MALE NURSE BECAUSE SHE DOESNT WANT FEMALES TAKING CARE OF HER. VERY ARGUMENTATIVE. YELLING. UNABLE TO REDIRECT. PATIENT TRANSFERRED ROOM TO A DIFFERENT POD SO SHE DONT DISTURB OTHER PATIENTS.
--- NOTE | 2017-05-04 04:36 | NUR ---
Given Tylenol 650mg po PRN for "unbearable excruciating pain" in right thigh.
[2017-05-04 08:11] VITALS: BP 158/55
--- NOTE | 2017-05-04 09:42 | NUR ---
B) PATIENT C/O PAIN IN HER SHOULDER AND GENERALIZED PAIN ALL OVER, SHE REQUESTS TWO TYLENOL, SHE IS MANIC IN BEHAVIOR TODAY, SHE IS LAUGHING INAPPROPRIATELY, SHE DOES SELF PROPEL IN HER W/C, SHE IS CALM, SHE HAS NOT SHOWN ANY AGGRESSION TODAY. I) PROVIDE PRESCRIBED MEDS. R) PATIENT IS COMPLIANT WITH MEDS AND SHE NEEDS MUCH REDIRECTION TO STOP INTERRUPTING. P) CONTINUE POC.
--- NOTE | 2017-05-04 11:09 | NUR ---
PATIENT ASKING FOR NEURONTIN, SHE C/O KNEE PAIN AND SAYS "IT'S THE ONLY THING THAT HELPS" DID PROVIDE HER ASA 325 MG SHE ASKED FOR THAT EVEN THOUGH SHE IS NOT HAVING ANGINA PAIN, SHE SAYS "I NEED IT, I NEED TO BE ON A DAILY REGIMEN"
--- NOTE | 2017-05-04 12:46 | PN ---
PATIENT:TERRENCE MESA MEDICAL RECORD: [id number] LOCATION:DARNELL Leigh ADMISSION DATE: 04/17/17 PROGRESS NOTE DATE OF SERVICE: 05/03/2017 SUBJECTIVE: The patient's case was discussed with staff. She has no new complaint. OBJECTIVE: The patient is in better behavioral control, although she still has a great deal of mood lability and says things that are quite delusional. She is also saying things that are flatly vulgar, which I will not repeat here. ASSESSMENT: No change in diagnoses. PLAN: The patient has been taking her medications for the past 24 hours. I am very much encouraged by this and have encouraged her to continue taking the medicines. I do not think it is unreasonable that she could be transitioned out of the hospital within a week if she will be compliant with the recommended therapies. TRANSINT:[id number] Voice Confirmation ID: [id number] DOCUMENT ID: [id number] FREDERICK OWEN MD at 1246 CC: [id number] DICTATION DATE: 05/03/17 1250 DIESEL MOTOR MECHANIC: 05/03/17 1319 ADM IN [id number] [place] [address]
--- NOTE | 2017-05-04 14:18 | NUR ---
PATIENT CONTINUES TO C/O PAIN IN HER KNEES, RATES IT 03/07, DID PROVEIDE 650 MG TYLENOL PO NOW.
--- NOTE | 2017-05-04 15:00 | NUR ---
PATIENT SAYS HER LEGS ARE BETTER NOW. 010.
[2017-05-04 19:30] VITALS: BP 182/79
--- NOTE | 2017-05-04 22:20 | NUR ---
RECEIVED IN PATIENT ROOM. MOVING ABOUT IN WHEELCHAIR GETTING READY FOR BED. COOPERATIVE WITH CARE AND ASSESSMENT. NO SEXUALLY INAPPROPRIATE STATEMENTS MADE. PATIENT STATED WHILE TAKING HER MEDS "I DONT NEED TO BE TAKING LITHIUM AND ZYPREXA BECAUSE I DO NOT HAVE SCHIZOPHRENIA. DR OWEN IS THE ONE THAT HAS SCHIZOPHRENIA SO HE NEEDS TO BE TAKING THIS LITHIUM AND ZYPREXA. I TRIED TO TELL HIM THAT I DONT NEED THESE MEDICINES BUT HE DONT LISTEN. I AM A GENIUS AND MY WHOLE FAMILY IS GENIUSES, PAST AND PRESENT. BUT I AM GOING TO TAKE IT SO I CAN GET OUT OF HERE." ENCOURAGE TO EXPRESS NEEDS. REDIRECT AND REORIENT NEEDED. RESTING IN BED WITH EYES CLOSED AT THIS TIME. CONTINUE PLAN OF CARE.
--- NOTE | 2017-05-05 08:30 | NUR ---
B) PATIENT C/O GENERALIZED PAIN. SHE IS ARGUMENTATIVE AND DEMANDING, SHE MAKES REQUESTS AND HAS NO PATIENCE. PATIENT SELF PROPELS IN W/C. I) PROVIDE PRESCRIBED MEDS. R) PATIENT IS COMPLIANT WITH MEDS, SHE DID REQUEST TYLENOL, SEE MAR. P) CONTINUE POC.
[2017-05-05 11:12] VITALS: BP 121/77
--- NOTE | 2017-05-05 12:20 | PN ---
PATIENT:TERRENCE MESA MEDICAL RECORD: [id number] LOCATION:DARNELL Leigh ADMISSION DATE: 04/17/17 PROGRESS NOTE DATE OF SERVICE: 05/04/2017 SUBJECTIVE: The patient's case was discussed with staff. She has no new complaint. OBJECTIVE: The patient denies intent to harm herself or others. She generally tolerates her medicines well. She is still manic and delusional, but much more cooperative. She actually slept for 4 hours last night. I think the medications are clearly helping. ASSESSMENT: No change in diagnoses. PLAN: Current medicines will be maintained. I will probably check a lithium level in a day or two. I do not anticipate it would be above therapeutic. TRANSINT:[id number] Voice Confirmation ID: [id number] DOCUMENT ID: [id number] FREDERICK OWEN MD at 1220 CC: [id number] DICTATION DATE: 05/04/17 1308 BRIM STIFFENER: 05/04/17 1328 ADM IN [address] [place] [address]
[2017-05-05 19:54] VITALS: BP 146/48
--- NOTE | 2017-05-05 23:53 | NUR ---
B) Patient is alert and oriented to person and place, intrusive, rude, and disruptive, demanding of multiple items because her insurance is paying for it, asking for a shot to help her sleep I) Administered scheduled medications, PRN Tylenol 650 mg PO given for headache at 22:53, R) Medication compliant, restless P) Continue plan of care.
--- NOTE | 2017-05-06 10:30 | NUR ---
B) PATIETN IS DRAMATIC, EVERYTHING IS SO IMPORTANT RIGHT NOW. SHE IS YELLING AND CRYING BECAUSE HER TRAY SAYS A DIABETIC DIET, SHE IS RANTING AND STATING "I AM NOT A DIABETIC, I READ A BOOK ONCE ABOUT IT, I AM NOT" PATIENT SELF PROPELS IN HER W/C. SHE DOES NOT WANT TO STAND EVEN WITH ASSIST. I) PROVIDE PRESCRIBED MEDS. R) PATIENT IS COMPLIANT WITH MEDS, SHE DOES NOT LISTEN WHEN REDIRECTED, SHE SAYS "RULES ARE TO BE BROKEN", SHE IS LABILE BECAUSE OTHER TIMES SHE IS CALM AND POLITE AND LISTENS TO STAFF. P) CONTINUE POC.
--- NOTE | 2017-05-06 10:34 | PN ---
PATIENT:TERRENCE MESA MEDICAL RECORD: [id number] LOCATION:DARNELL Leigh ADMISSION DATE: 04/17/17 PROGRESS NOTE DATE OF SERVICE: 05/05/2017 SUBJECTIVE: The patient's case was discussed with staff. She has no new complaint. OBJECTIVE: The patient is compliant with her medications. She is tolerating them well. She has not been verbally or physically aggressive, although she still says a number of things that are clearly delusional. She is much less verbal. ASSESSMENT: No change in diagnoses. PLAN: The patient is dramatically better. If this level of improvement is maintained, I anticipate she can be discharged within a week. Her long-term wellbeing will be entirely contingent upon her being compliant with medicines, which I continue to emphasize to her are the roldan to her staying out of the hospital and functioning well. At least at this time, she is not arguing with me in taking the medicines. I probably will check a lithium level in a day or two. I am not going to anticipate it being above therapeutic. TRANSINT:[id number] Voice Confirmation ID: [id number] DOCUMENT ID: [id number] FREDERICK OWEN MD at 1034 CC: [id number] DICTATION DATE: 05/05/17 1234 FIRST LINE PRODUCTION SUPERVISOR: 05/05/17 1253 ADM IN [id number] [place] [address]
[2017-05-06 11:52] VITALS: BP 210/70
--- NOTE | 2017-05-06 18:08 | NUR ---
WHEN SPEAKING TO PATIENT THIS PM, DID NOTICE PATIENT'S TONGUE IS ROLLING AND THIS IS SOMETHING NEW, WILL LET DR. OWEN KNOW.
--- NOTE | 2017-05-06 19:28 | PN ---
PATIENT:TERRENCE MESA MEDICAL RECORD: [id number] LOCATION:DARNELL Leigh ADMISSION DATE: 04/17/17 PROGRESS NOTE DATE OF SERVICE: 05/06/2017 SUBJECTIVE: The patient's case was discussed with staff. She has no new complaint. OBJECTIVE: The patient is in good behavioral control with limited insight about her condition. She tolerates her medicines well. Eye contact is fair. ASSESSMENT: No change in diagnoses. PLAN: The patient has shown significant improvement. I am going to order a lithium level. I am also going to order melatonin to assist with sleep at her request and Neurontin to assist with some nerve pain in her legs at her request. I think her long-term prognosis is guarded, but she has dramatically improved and I would hope she could reasonably be transitioned out of the hospital soon. TRANSINT:[id number] Voice Confirmation ID: [id number] DOCUMENT ID: [id number] FREDERICK OWEN MD at 1928 CC: [id number] DICTATION DATE: 05/06/17 1103 RN ORTHOPAEDIC: 05/06/17 1142 ADM IN [facility] [address] [place] [address]
--- NOTE | 2017-05-07 05:48 | NUR ---
B) Patient is alert and oriented to self and place, rude and demanding at times, impatient and disruptive, I) Administered scheduled medications, PRN Tylenol 650 mg PO given at 20:53, redirected as needed R) Medication compliant, patient has improved behavior P) Continue plan of care.
[2017-05-07 07:00] VITALS: BP 146/64
--- NOTE | 2017-05-07 08:15 | NUR ---
ADMINISTERED MORNING MEDICATIONS WITHOUT DIFFICULTY. PLEASANT AFFECT. NO S/SX OF ACUTE DISTRESS NOTED. ALERT AND ORIENTED X3. DENIES ANY NEEDS. WILL CONTINUE TO MONITOR
--- NOTE | 2017-05-07 11:40 | NUR ---
MEDICATION ADMINISTRATION LATE FOR B-12 AND COGENTIN DUE TO MEDICATION UNAVAILABLE, PHARMACY WAS NOTIFIED.
--- NOTE | 2017-05-07 17:42 | NUR ---
IS ALERT AND ORIENTED.PROPELLS SELF IN WHEELCHAIR.LOUD AND INTRUSIVE AT TIMES.COMPIANT WITH MEDS.COMPLIANT WITH STAFF MOST OF THE TIME.CAN BE VERY DEMANDING,HAS VERY GOOD APPETITE.CONTINUE WITH PLAN OF CARE,MONITOR FOR CHANGES AND SAFETY.
[2017-05-07 20:07] VITALS: BP 118/50
--- NOTE | 2017-05-07 20:20 | NUR ---
RECEIVED IN BEDROOM. RESTING IN BED WITH EYES OPEN. TALKING TO MHT WHILE TAKING VITALS. CALM AND COOPERATIVE WITH CARE AND ASSESSMENTS. ENCOURAGE TO EXPRESS NEEDS. REDIRECT AND REORIENT NEEDED. IN HALLWAY SOCIALIZING WITH PEERS AT THIS TIME. CONTINUE PLAN OF CARE
[2017-05-08 07:00] VITALS: BP 159/51
--- NOTE | 2017-05-08 09:25 | NUR ---
PT TOOK ALL MEDS AND UESTIONED EVERY PILL AND SAID CYMBALTA CAUSES HEARTATTACKES AND DID WE WANT KILL HER VERY ARGUMENTATIVE WILL MONITER
--- NOTE | 2017-05-08 14:12 | PN ---
PATIENT:TERRENCE MESA MEDICAL RECORD: [id number] LOCATION:DARNELL Leigh ADMISSION DATE: 04/17/17 PROGRESS NOTE DATE OF SERVICE: 05/07/2017 SUBJECTIVE: The patient's case was discussed with staff. She has no new complaint. OBJECTIVE: The patient denies intent to harm herself or others. She generally tolerates her medicines well. ASSESSMENT: No change in diagnoses. PLAN: Current medicines have been reviewed. I anticipate she can be transitioned out of the hospital soon. Her long-term prognosis is guarded. TRANSINT:[id number] Voice Confirmation ID: [id number] DOCUMENT ID: [id number] FREDERICK OWEN MD at 1412 CC: [id number] DICTATION DATE: 05/07/17 1111 BINDER OPERATOR: 05/07/17 1341 ADM IN [facility] [address] [place] [address]
[2017-05-08 19:30] VITALS: BP 135/47
--- NOTE | 2017-05-09 02:35 | NUR ---
RECEIVED IN BEDROOM. RESTING IN BED WITH EYES CLOSED. CALM AND COOPERATIVE WITH CARE AND ASSESSMENTS. NOT SEXUALLY INAPPROPRIATE. CRYING AT MED PASS. REDIRECT AND REORIENT NEEDED. RESTING IN BED EYES CLOSED. CONTINUE PLAN OF CARE
[2017-05-09 07:00] VITALS: BP 164/75
--- NOTE | 2017-05-09 12:00 | NUR ---
B) PATIENT HAS BEEN CALM AND POLITE, SHE HAS NOT BEEN INTRUSIVE, SHE DID HOWEVER YELL AND SCREAM AND RANT THIS AM BECAUSE SHE DID NOT WANT TO GET UP AND SHE DID NOT WANT TO SHOWER AFTER THAT EARLY EPISODE SHE MELLOWED AND HAS BEEN SELF PROPELLING AND INTERACTING WITH STAFF AND PEERS APPROPRIATELY. SHE HAS NOT BEEN ARGUMENTATIVE THIS AFTERNOON. I) PROVIDE PRESCRIBED MEDS. R) PATIENT IS COMPLIANT WITH MEDS AND UNIT MILIEU. P) CONTINUE POC.
--- NOTE | 2017-05-09 12:51 | NUR ---
Nutrition Follow Up: Pt is eating 89% meal avg on a diabetic diet. +BM 05/06/17. Labs and meds reviewed. Rec continue current diet. RD following.
--- NOTE | 2017-05-09 13:24 | PN ---
PATIENT:TERRENCE MESA MEDICAL RECORD: [id number] LOCATION:[facility] ADMISSION DATE: 04/17/17 PROGRESS NOTE DATE OF SERVICE: 05/08/2017 SUBJECTIVE: The patient's case was discussed with staff. She has no new complaint. OBJECTIVE: The patient denies intent to harm herself or others. She does tolerate her medicines well. Eye contact is fair. ASSESSMENT: No change in diagnoses. PLAN: Brief supportive and educational interventions were made. Long-term prognosis is guarded. TRANSINT:[id number] Voice Confirmation ID: [id number] DOCUMENT ID: [id number] FREDERICK OWEN MD at 1324 CC: [id number] DICTATION DATE: 05/08/17 1422 HOT SAW OPERATOR: 05/08/17 1552 ADM IN [facility] [address] [place] [address]
[2017-05-09] MEDS ORDERED: LISINOPRIL10 MG PO (13:50)
[2017-05-09] MEDS ORDERED: FEXOFENADINE H180 MG PO (13:50)
[2017-05-09] MEDS ORDERED: BENZTROPINE MESY1 MG PO (13:51)
[2017-05-09] MEDS ORDERED: LITHIUM CARBON300 MG PO ×2 (13:52)
[2017-05-09] MEDS ORDERED: ZYPREXA5 MG PO (13:52)
[2017-05-09] MEDS ORDERED: GABAPENTIN100 MG PO (13:52)
[2017-05-09] MEDS ORDERED: FLUTICASONE PRO16 GM NASAL (13:53)
[2017-05-09] MEDS ORDERED: ZOFRAN4 MG PO (13:54)
[2017-05-09] MEDS ORDERED: PROTONIX40 MG PO (13:54)
[2017-05-09] MEDS ORDERED: MELATONIN 3 MG1 TAB PO (13:55)
[2017-05-09] MEDS ORDERED: VITAMIN B-121000 MCG PO (13:55)
--- NOTE | 2017-05-10 00:42 | NUR ---
RECEIVED IN BEDROO. RESTING IN BED WITH EYES CLOSED. CALM AND COOPERATIVE WITH CARE AND ASSESSMENTS. NOT SEXUALLY INAPPROPRIATE THIS EVENING. NO YELLING OUT. CONTINUES TO REST QUIETLY IN BED WITH EYES CLOSED. CONTINUE PLAN OF CARE
--- NOTE | 2017-05-10 08:25 | NUR ---
PATIENT DID SIT IN THE BATHROOM AND SHE GOT UP BY HERSELF AND SHE FELL OR SLID TO THE FLOOR, THERE WAS URINE ON THE FLOOR. VSS, NEURO CHECKS WNL. CALLED DR. MONK, NO NEW ORDERS.
[2017-05-10 10:30] VITALS: BP 139/42
--- NOTE | 2017-05-10 13:05 | NUR ---
B) PATIENT IS AWAKE AND ALERT, SHE IS READY TO GO BACK TO [facility] WHERE HER BELONGINGS ARE. SHE IS COOPERATIVE, SHE SELF PROPELS IN A W/C. PATIENT HAD A SHOWER THIS AM AND SHE DID HAVE A BM, DID FAX ALL D/C ORDERS AND MED REC. TO [facility], ATTEMPTED TO CALL [facility] FOR REPORT, THE PHONE CONTINUES TO RING. I) PROVIDE PRESCRIBED MEDS. R) PATIENT IS COMPLIANT WITH MEDS. P) CONTINUE WITH D/C.
--- NOTE | 2017-05-10 17:00 | PN ---
PATIENT:TERRENCE MESA MEDICAL RECORD: [id number] LOCATION:[facility] ADMISSION DATE: 04/17/17 PROGRESS NOTE DATE OF SERVICE: 05/09/2017 SUBJECTIVE: The patient's case was discussed with staff. She has no new complaint. OBJECTIVE: The patient is in good behavioral control with limited insight about her condition. She tolerates her medicines well. ASSESSMENT: No change in diagnoses. PLAN: I anticipate the patient can be transitioned back to the correction tomorrow. Her long-term prognosis is guarded. TRANSINT:[id number] Voice Confirmation ID: [id number] DOCUMENT ID: [id number] FREDERICK OWEN MD at 1700 CC: [id number] DICTATION DATE: 05/09/17 1410 PYROGLAZER: 05/09/17 1755 DIS IN 05/10/17 [facility] [address] [place] [address]
--- NOTE | 2017-05-17 14:20 | DS ---
PATIENT:TERRENCE MESA :40 MEDICAL RECORD: [id number] DISCHARGE SUMMARY ADMISSION DATE: 04/17/17 DISCHARGE DATE: 05/10/17 IDENTIFYING DATA: The patient is 76 years old and she was admitted to the hospital on a voluntary basis because of olga. The patient has a known history of mental illness with a longstanding diagnosis of bipolar disorder. She lives in a local snf. She apparently had become toxic on lithium and it was discontinued. A short time later, she became manic, screaming, yelling, threatening, and agitated. She was admitted to the hospital, manic. HOSPITAL COURSE: The patient was admitted to the hospital and fully evaluated from both a medical, psychological, and social standpoint. The patient was resistant to taking lithium, even though it was repeatedly explained to her that it was in her best interest and that she does not have an allergy to it and that she has normal kidney functioning. The patient took a few doses intermittently, but then became convinced as she got a little better and once she was taking her medications, it was not difficult to have her discharged within 10 days. She improved dramatically and was transitioned back to the snf once again indicating that this patient needs lithium. DISCHARGE DIAGNOSES: AXIS I: Schizoaffective disorder, bipolar type. AXIS II: None. AXIS III: Hypertension, diabetes AXIS IV: Moderate stressors. AXIS V: Global assessment of functioning is 40. PLAN: At the time of discharge, the patient was in good behavioral control. She had no evidence of olga. She did have some delusional thought content, but I suspect that was close to her baseline level of functioning. She certainly had no evidence of acute or direct dangerousness to herself or others. Her long-term prognosis is guarded. I strongly recommend that her lithium be continued. It may in the future be necessary to supplement her with thyroid hormone and/or adjust the dose of her lithium and monitor it more closely as she ages and develops some renal insufficiency, but this patient is almost certainly going to be uncontrollably mentally ill without lithium. She has been tried on other mood stabilizers with little or no effect. Her lithium should be continued. TRANSINT:[id number] Voice Confirmation ID: [id number] DOCUMENT ID: [id number] FREDERICK OWEN MD at 1420 CC: [id number] DICTATION DATE: 05/16/17 1513 PREVENTIVE MAINTENANCE COORDINATOR: 05/17/17 0237 DIS IN 05/10/17 [facility] [address] [place] [id number]
== END 2017-05-10 14:43 | DRG 885 ==
LOC: D.ER 14:03 → D.PSYCH 18:18 → EDBD 05-10 14:43 → D.PSYCH 05-10 14:43
PROVIDERS: Family Medicine; ADMIT Psychiatry & Neurology Psychiatry
DX: F25.0 Schizoaffective disorder, bipolar type (principal); G30.9 Alzheimer's disease, unspecified; F02.80 Dementia in other diseases classified elsewhere, unspecified severity, without behavioral disturbance, psychotic disturbance, mood disturbance, and anxiety; E11.40 Type 2 diabetes mellitus with diabetic neuropathy, unspecified; I10 Essential (primary) hypertension; F41.9 Anxiety disorder, unspecified; N32.81 Overactive bladder; K59.00 Constipation, unspecified; I73.9 Peripheral vascular disease, unspecified; J30.9 Allergic rhinitis, unspecified; E78.5 Hyperlipidemia, unspecified; E55.9 Vitamin D deficiency, unspecified

== ENCOUNTER 2017-05-13 04:48 | Emergency (ER) | payer MEDICARE ==
[2017-04-18 16:42] VITALS: BMI 66.7
[~2017-05-13 04:48] MED LIST changes: +ACETAMINOPHEN325 MG PO; +ACIDOPHILUS LAC1 CAP PO; +ARTIFICIAL TEAR15 ML EACH EYE; +ASCORBIC ACID500 MG PO; +ASPIRIN325 MG PO; +AUGMENTIN 875-11 TAB PO; +BAYER CHEWABLE81 MG PO; +BENZTROPINE MESY1 MG PO; +DITROPAN X10 MG/BOTT PO; +DULCOLAX STOOL100 MG PO; +FEXOFENADINE H180 MG PO; +FIBER POWDER; +FISH OIL 1,0001 CA1 PO; +FLUTICASONE PRO16 GM NASAL; +GABAPENTIN100 MG PO; +GAS-X80 MG PO; +HYDRALAZINE HCL10 MG PO; +LISINOPRIL10 MG PO; +LITHIUM CARBON300 MG PO; +MELATONIN 3 MG1 TAB PO; +METOPROLOL TART50 MG PO; +MIRALAX17 GM PO; +NEURONTIN 300300 MG PO; +NYAMYC60 GM TP; +OMEPRAZOLE20 M1 PO; +PROTONIX40 MG PO; +PROZAC10 MG PO; +VITAMIN B-121000 MCG PO; +VITAMIN D31000 UNIT PO; +ZOFRAN4 MG PO; +ZYPREXA5 MG PO
== END 2017-05-13 07:45 ==
LOC: D.ER 04:48 → EDBD 04:48 → D.ER 07:45
DX: Z91.81 History of falling (principal); Z86.59 Personal history of other mental and behavioral disorders; Z86.73 Personal history of transient ischemic attack (TIA), and cerebral infarction without residual deficits

== ENCOUNTER 2017-05-13 21:00 | Emergency (ER) | payer MEDICARE ==
[2017-04-18 16:42] VITALS: BMI 66.7
== END 2017-05-13 22:41 | disposition home or self-care (01) ==
LOC: EDBD 21:00 → D.ER 21:00
DX: Z91.81 History of falling (principal); Z86.59 Personal history of other mental and behavioral disorders

== ENCOUNTER 2017-07-11 07:03 | Inpatient (IN) | payer MEDICARE, MEDICAID ==
[~2017-07-11] VITALS: Ht 175.3 cm; Wt 89.3 kg
--- NOTE | ~2017-07-11 | PSY ---
PATIENT NAME:TERRENCE MESA V MEDICAL RECORD: [id number] : 40 LOCATION:[facility] ADMISSION DATE: 07/11/17 ACCOUNT: [id number] PSYCHIATRIC EVALUATION DATE OF EVALUATION: 07/11/17 Psychiatric Evaluation IDENTIFYING DATA: The patient is 76 years old and she is known to me from previous clinical contact. CHIEF COMPLAINT: Olga. HISTORY OF PRESENT ILLNESS: The patient lives in a local snf where she has not been taking her lithium. She was here about 2 months ago and at that time was not taking lithium and was manic. She was treated with the medication, improved dramatically and sent back to the snf. She now says the snf is not giving her lithium, but in actuality she has been refusing it along with other medications and I cannot even check lab results because she will not take the medication. She tells me that she will take the medicine if I prescribe it. She is hyperverbal, manic, disorganized, but not wanting to harm herself or others. She does speak in a very delusional manner. PAST MEDICAL HISTORY: Significant for diabetes. PAST PSYCHIATRIC HISTORY: Significant for chronic mental illness, specifically bipolar disorder. ALLERGIES: No known drug allergies. CURRENT MEDICATIONS: Include vitamin B12, Protonix, Zofran, Zyprexa, lithium, Neurontin, Cogentin, lisinopril, and Val. SOCIAL HISTORY: The patient is . She is not functioned well socially or occupationally much of her adult life and has been chronically ill and institutionalized much of her adult life. She denies a history of drug or alcohol abuse. MENTAL STATUS EXAMINATION: The patient is awake, alert and oriented to person and place. Her mood is angry. Her affect is constricted. Thought processes are disorganized and she is not very cooperative with memory, concentration and abstraction abilities, but by inference they are all deemed to be impaired. She denies any psychotic symptoms, although she is displaying them. She denies any intent to harm herself or others. ASSETS: A stable living environment. LIABILITIES: Almost complete lack of insight about her illness. DIAGNOSTIC IMPRESSION: AXIS I: Schizoaffective disorder, bipolar type. Senile dementia of Alzheimer's type. AXIS II: Deferred. AXIS III: Hypertension, peripheral artery disease, and diabetes. AXIS IV: Moderate stressors. AXIS V: Global assessment of functioning is 35. PLAN: At this time, the patient is admitted to the hospital secondary to olga with delusions. This is associated with a lack of lithium compliance. My past experience with her has been that she quickly organized once she begins taking lithium. TRANSINT:[id number] Voice Confirmation ID: [id number] DOCUMENT ID: [id number] FREDERICK OWEN MD at 1150 CC: [id number] DICTATION DATE: 07/11/17 1517 MOTO MIX OPERATOR: 07/11/17 1555 ADM IN [facility] [address] [place] [id number]
--- NOTE | ~2017-07-11 | PN ---
PATIENT:TERRENCE MESA V MEDICAL RECORD: [id number] LOCATION:[facility] ADMISSION DATE: 07/11/17 PROGRESS NOTE DATE OF SERVICE: 07/14/2017 SUBJECTIVE: The patient's case was discussed with staff. She has no new complaint. OBJECTIVE: The patient is in good behavioral control with limited insight about her condition. She generally tolerates her medicines well. ASSESSMENT: No change in diagnoses. PLAN: Current medicines have been reviewed and will be maintained. Long-term prognosis is guarded. The patient's lithium level today is 0.51 mEq. I have elected not to increase the dose of her lithium today, but we will likely need to do so prior to discharge. I obviously am titrating the lithium level not to a number, but to a clinical response and given her history of noncompliance with lithium therapy I think it is important to have her on the absolute lowest dose of lithium that she can tolerate. TRANSINT:[id number] Voice Confirmation ID: [id number] DOCUMENT ID: [id number] FREDERICK OWEN MD at 1139 CC: [id number] DICTATION DATE: 07/14/17 1336 GLASS BEVELER: 07/14/172023 ADM IN [id number] [place] [address]
--- NOTE | ~2017-07-11 | PN ---
PATIENT:TERRENCE MESA V MEDICAL RECORD: [id number] LOCATION:[facility] ADMISSION DATE: 07/11/17 PROGRESS NOTE DATE OF SERVICE: 07/13/2017 SUBJECTIVE: The patient's case was discussed with staff. She has no new complaint. OBJECTIVE: The patient has shown significant improvement and is currently taking her medications. Her long-term prognosis is guarded. She has not allowed blood draws. I have spoken to her about this and she says she will do so now. TRANSINT:[id number] Voice Confirmation ID: [id number] DOCUMENT ID: [id number] FREDERICK OWEN MD at 0912 CC: [id number] DICTATION DATE: 07/13/17 1226 REFINERY OPERATOR VAPOR RECOVERY UNIT: 07/13/17 1235 ADM IN [id number] [place] [address]
--- NOTE | ~2017-07-11 | PN ---
PATIENT:TERRENCE MESA V MEDICAL RECORD: [id number] LOCATION:[facility] ADMISSION DATE: 07/11/17 PROGRESS NOTE DATE OF SERVICE: 07/12/2017 SUBJECTIVE: The patient's case was discussed with staff. She has no new complaint. OBJECTIVE: The patient is in good behavioral control with limited insight about her condition. She already appears less manic after only having a couple of doses of lithium. She still is not allowing her blood to be drawn, which is distressing, but I will speak with her about that in a little while. I did not realize she was not letting anyone draw her blood. After I spoke with her about it yesterday, she said she would. She is willing to take her lithium and I am encouraged by this. Her long-term prognosis is guarded. She does feel that Prozac is helpful to her condition and I am going to order it at a dose of 20 mg. TRANSINT:[id number] Voice Confirmation ID: [id number] DOCUMENT ID: [id number] FREDERICK OWEN MD at 1206 CC: [id number] DICTATION DATE: 07/12/17 1234 MEDICAL BILLING MANAGER: 07/12/17 1247 ADM IN [address] [id number] [place] [address]
--- NOTE | ~2017-07-11 | PN ---
PATIENT:TERRENCE MESA V MEDICAL RECORD: [id number] LOCATION:[facility] ADMISSION DATE: 07/11/17 PROGRESS NOTE DATE OF SERVICE: 07/17/2017 SUBJECTIVE: The patient's case was discussed with staff. She has no new complaint. OBJECTIVE: The patient is in good behavioral control with limited insight about her condition. She tolerates her medicines well. ASSESSMENT: No change in diagnoses. PLAN: Brief supportive and educational interventions were made. Assisted prognosis is guarded. TRANSINT:[id number] Voice Confirmation ID: [id number] DOCUMENT ID: [id number] FREDERICK OWEN MD at 1430 CC: [id number] DICTATION DATE: 07/17/17 1359 TRAILHEAD MAINTENANCE WORKER: 07/17/17 1558 ADM IN [id number] [place] [address]
--- NOTE | ~2017-07-11 | PN ---
PATIENT:TERRENCE MESA V MEDICAL RECORD: [id number] LOCATION:[facility] ADMISSION DATE: 07/11/17 PROGRESS NOTE DATE OF SERVICE: 07/18/2017 SUBJECTIVE: The patient's case was discussed with staff. She has no new complaint. OBJECTIVE: The patient is disorganized with limited insight about her condition. She tolerates her medicines well. ASSESSMENT: No change in diagnoses. PLAN: Brief supportive and educational interventions were made. Alf prognosis is guarded. TRANSINT:[id number] Voice Confirmation ID: [id number] DOCUMENT ID: [id number] FREDERICK OWEN MD at 2008 CC: [id number] DICTATION DATE: 07/18/17 1526 FIRE CONTROL MECHANIC: 07/18/17 1623 DIS IN 07/19/17 [id number] [place] [address]
--- NOTE | ~2017-07-11 | PN ---
PATIENT:TERRENCE MESA V MEDICAL RECORD: [id number] LOCATION:[facility] ADMISSION DATE: 07/11/17 PROGRESS NOTE DATE OF SERVICE: 07/15/2017 SUBJECTIVE: The patient's case was discussed with staff. She has no new complaint. OBJECTIVE: The patient denies intent to harm herself or others. She does tolerate her medicines well. ASSESSMENT: No change in diagnoses. PLAN: Supportive and educational interventions were made. regional intermodal truck driver prognosis is guarded. She is much less manic and I anticipate she can be transitioned out of the hospital soon if this level of improvement is maintained. TRANSINT:[id number] Voice Confirmation ID: [id number] DOCUMENT ID: [id number] FREDERICK OWEN MD at 1430 CC: [id number] DICTATION DATE: 07/15/17 1151 SYRUP MIXER: 07/15/17 1227 ADM IN [facility] [address] [place] [address]
[2017-07-11 08:57] VITALS: BP 109/68
[2017-07-11 18:52] VITALS: BP 109/68; BMI 29.0
[2017-07-11 20:10] VITALS: BP 152/65
[2017-07-12 09:52] VITALS: BP 110/68
[2017-07-12 19:45] VITALS: BP 136/61
[2017-07-13 09:51] VITALS: BP 179/77
[2017-07-13 13:06] LABS: APPEARANCE HAZY (CLEAR); COLOR YELLOW (YELLOW)
[2017-07-13 13:07] LABS: BILIRUBIN NEGATIVE (NEGATIVE); GLUCOSE NEGATIVE (NEGATIVE); KETONE NEGATIVE (NEGATIVE); NITRITE NEGATIVE (NEGATIVE); PROTEIN NEGATIVE (NEGATIVE); UROBILINOGEN NORMAL (NORMAL); WHITE CELLS - URINE 0-5 /hpf (0-5)
[2017-07-13 13:08] LABS: BACTERIA FEW /hpf (NONE SEEN); EPITHELIAL CELLS 0-5 /hpf (0-5); RED CELLS - URINE 0-5 /hpf (0-5)
[2017-07-13 14:25] LABS: BASOPHILS 0.2 % (0-2); HEMATOCRIT 37.2 % (36.0-48.0); HEMOGLOBIN 11.6 g/dL (12-16); IMMATURE GRANULOCYTES 0.2 % (0-5); LYMPHOCYTES 26.7 % (15-50); MCH 30.6 pg (26.0-34.0); MCHC 31.2 g/dL (31.0-37.0); MCV 98.2 fL (80.0-100.0); MEAN PLATELET VOLUME 11.6 fL (7.4-10.4); MONOCYTES 4.2 % (2-11); NEUTROPHILS 64.7 % (40-80); RBC 3.79 10x6/uL (4.00-5.40); RDW 16.8 % (11.5-14.5); WBC 12.9 10x3/uL (4.8-10.8)
[2017-07-13 14:29] LABS: PLATELET COUNT 251 10x3/uL (130-400)
[2017-07-13 14:57] LABS: ALBUMIN 3.3 g/dL (3.4-5.0); ANION GAP 12.1 mmol/L (8-16); BILIRUBIN - TOTAL 0.3 mg/dL (0.2-1.3); CALCIUM 9.6 mg/dL (8.5-10.1); CARBON DIOXIDE 27.6 mmol/L (21.0-32.0); CREATININE - SERUM 1.1 mg/dL (0.6-1.3); POTASSIUM - SERUM 4.7 mmol/L (3.5-5.1); PROTEIN - SERUM 7.6 g/dL (6.4-8.2)
[2017-07-13 15:00] LABS: HEMOGLOBIN A1C 5.5 % (4.8-6.0)
[2017-07-13 23:34] VITALS: BP 174/75
[2017-07-14 09:56] VITALS: BP 190/61
[2017-07-14 20:08] VITALS: BP 168/63
[2017-07-15 08:23] VITALS: BP 165/72
[2017-07-15 19:57] VITALS: BP 150/46
[2017-07-16 07:34] VITALS: BP 129/51
[2017-07-16 10:35] LABS: APPEARANCE HAZY (CLEAR); BILIRUBIN NEGATIVE (NEGATIVE); COLOR YELLOW (YELLOW); GLUCOSE NEGATIVE (NEGATIVE); KETONE NEGATIVE (NEGATIVE); NITRITE NEGATIVE (NEGATIVE); PROTEIN NEGATIVE (NEGATIVE); UROBILINOGEN NORMAL (NORMAL)
[2017-07-16 23:56] VITALS: BP 132/63
[2017-07-17 08:00] VITALS: BP 166/54
[2017-07-17 19:16] VITALS: BP 116/47
[2017-07-18 07:00] VITALS: BP 137/42
[2017-07-18] MEDS ORDERED: Levaquin PO (14:40)
[2017-07-18] MEDS ORDERED: DIFLUCAN100 MG PO (14:40)
[2017-07-18] MEDS ORDERED: PROZAC20 MG PO (14:41)
[2017-07-18] MEDS ORDERED: LIDODERM 5 %1 PATCH TRANSDERM (14:42)
[2017-07-18] MEDS ORDERED: FLORAJEN3 CAPS460 MG PO (14:42)
[2017-07-18 19:52] VITALS: BP 121/51
[2017-07-19 07:56] VITALS: Ht 175.3 cm; Wt 89.3 kg
[2017-07-19 10:24] VITALS: BP 133/45
== END 2017-07-19 10:31 | DRG 885 ==
LOC: D.PSYCH 07:03
PROVIDERS: Psychiatry & Neurology Psychiatry
DX: F25.0 Schizoaffective disorder, bipolar type (principal); F02.81 Dementia in other diseases classified elsewhere, unspecified severity, with behavioral disturbance; N39.0 Urinary tract infection, site not specified; G30.1 Alzheimer's disease with late onset; I10 Essential (primary) hypertension; E11.51 Type 2 diabetes mellitus with diabetic peripheral angiopathy without gangrene; E11.40 Type 2 diabetes mellitus with diabetic neuropathy, unspecified; E55.9 Vitamin D deficiency, unspecified; E53.8 Deficiency of other specified B group vitamins; B37.2 Candidiasis of skin and nail; B96.1 Klebsiella pneumoniae [K. pneumoniae] as the cause of diseases classified elsewhere; J30.9 Allergic rhinitis, unspecified; E78.5 Hyperlipidemia, unspecified; K21.9 Gastro-esophageal reflux disease without esophagitis; Z74.09 Other reduced mobility; F41.8 Other specified anxiety disorders